=== PATIENT | female | born 1940 | race Caucasian/White ===

== ENCOUNTER 2017-01-19 09:12 | Day surgery (SDC) | payer MEDICARE ==
[~2017-01-19] VITALS: Ht 156.2 cm; Wt 68.0 kg
[~2017-01-19 09:12] MED LIST: 0.9% Sodium Chloride 1,000 ML IV SCH; CLOB15CR3 TOP; DULO30CA50 PO; FLUT16SP NS; GABA-502 PO; HYDR200T5 PO; LACT1CAP65 PO; LORA1TAB PO; OMEP40CA36 PO; ONDA8TAB10 PO; POLY17PO6 PO; Sodium Chloride LOK Flush 10 mL Syringe IV PRN; TRET20CR2 TP; VALS320T12 PO; fentaNYL-PF 50 mCg/mL 2 mL Inj IVPUSH PRN
[2017-01-19 09:46] VITALS: BP 153/90; PULSE 97; RESP 16; O2SAT 97
[2017-01-19] MEDS ORDERED: PSYL1PAC10 PO (09:46)
[2017-01-19 10:43] VITALS: BP 137/77; PULSE 80; RESP 12; O2SAT 99
[2017-01-19 10:52] VITALS: BP 139/74; PULSE 79; RESP 15; O2SAT 99
[2017-01-19 11:02] VITALS: BP 137/76; PULSE 80; RESP 15; O2SAT 98
--- NOTE | 2017-01-19 14:29 | ENDO ---
[address] [address] ENDOSCOPY PROCEDURE PATIENT: RAFAEL THOMSON : 1940 MR#: [id number] ADMIT: 01/19/2017 JOB ID: [id number] TITLE OF OPERATION: Esophagogastroduodenoscopy (EGD) with biopsy and colonoscopy with biopsy. PREOPERATIVE DIAGNOSIS(ES): Gastroesophageal reflux disease (GERD) and diarrhea. POSTOPERATIVE DIAGNOSIS(ES): 1. Antral ulcer distal esophagus that was seen, clean based and nonbleeding. 2. Mild nonerosive gastritis. 3. A 3 mm colon polyp seen in the ascending colon status post biopsy. 4. Small internal hemorrhoids. ANESTHESIA: Fentanyl 125 mcg and Versed 7 mg IV administered. COMPLICATIONS: None. BLOOD LOSS: Minimal. DESCRIPTION OF PROCEDURE: After the risks and benefits were explained to the patient, informed consent was obtained. After anesthesia was administered, the upper endoscope was inserted into mouth, intubating through the esophagus, stomach, and second portion of the duodenum and the mucosa carefully examined. After the procedure was done, the scope was withdrawn and the procedure terminated. A colonoscope was inserted per rectum to the terminal ileum and the mucosa carefully examined. Prep of the patient was excellent. After the procedure was done, the scope was withdrawn and the procedure terminated. FINDINGS: Upon inspection of the esophagus, the esophagus was normal, without masses, ulcers, or lesions. Z-line located 40 cm from incisors. Upon entering stomach there was a distal antral ulcer that was seen, clean based and nonbleeding. There was also mild nonerosive gastritis. Duodenal bulb, first and second portion were normal. Biopsies were taken in the duodenum, antral ulcer, body and distal esophagus. Upon inspection of the anus no masses, hemorrhoids, ulcers, or fissures that were seen throughout the entire examination. There were small internal hemorrhoids on retroflexion. There was also a 2-3 mm ascending colon polyp, removed by cold biopsy forceps. Random biopsies taken throughout the entire colon. IMPRESSION: 1. A 2 mm ascending colon polyp, removed by cold biopsy forceps. 2. Moderate internal hemorrhoids. 3. Clean based, nonbleeding ulcer in the antrum. 4. Mild nonerosive gastritis. RECOMMENDATIONS: 1. Await pathology results. 2. Carafate 1 g by mouth four times a day. 3. Omeprazole 40 mg by mouth twice a day. 4. Follow up in GI Clinic as needed.
--- NOTE | 2017-01-22 13:23 | PATH ---
SURGICAL PATHOLOGY Attending Physician:Rafal Burt MD CASE STATUS: Signed Out PATIENT NAME: RAFAEL THOMSON PID: [id number] : 1940 DATE COLLECTED:01/19/2017 17:04 SPECIMEN: 1: Esophagus, Biopsy 2: Stomach, Antrum, Biopsy 3: Gastric, Biopsy 4: Duodenum, Biopsy 5: Colon, Biopsy 6: Colon, Polyp CLINICAL HISTORY: 1). DISTAL ESOPHAGUS 2). ANTRAL ULCER 3). GASTRIC BODY 4). DUODENUM 5). RANDOM COLON 6). ASCENDING COLON POLYP FINAL DIAGNOSIS: 1.DISTAL ESOPHAGUS BIOPSY: SQUAMOCOLUMNAR MUCOSA WITH NO DIAGNOSTIC ALTERATIONS. Negative for intestinal/Frias' s metaplasia. Negative for dysplasia and malignancy. 2.ANTRAL ULCER, BIOPSY: EROSIVE GASTRITIS. Negative for intestinal metaplasia. Negative for dysplasia and malignancy. Immunohistochemical stains for Helicobacter pylori are pending and will be reported in an addendum. 3.GASTRIC BODY BIOPSY: BODY-TYPE MUCOSA WITH NO DIAGNOSTIC ALTERATIONS. Negative for Helicobacter organisms on H&E stains. Negative for intestinal metaplasia. Negative for dysplasia and malignancy. 4.DUODENUM BIOPSY: DUODENAL MUCOSA WITH NO DIAGNOSTIC ALTERATIONS. Negative for inflammation, sprue, dysplasia, and malignancy.5.RANDOM COLON BIOPSIES: COLONIC MUCOSA WITH NO DIAGNOSTIC ALTERATIONS. Negative for inflammation, dysplasia and malignancy. 6.ASCENDING COLON POLYP: TUBULAR ADENOMA. 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 1). The specimen is labeled "distal esophagus" and consists of a 0.2 x 0.2 x 0.2 CM portion of tissue which is entirely submitted in cassette 1A. 2). The specimen is labeled "antral ulcer" and consists of a 0.2 x 0.2 x 0.2 CM portion of tissue which is entirely submitted in cassette 2A. 3). The specimen is labeled "gastric body" and consists of 2 portions of tissue which aggregate to 0.3 x 0.2 x 0.2 CM. The specimen is entirely submitted in cassette 3A. 4). The specimen is labeled "duodenum" and consists of 2 portions of tissue which aggregate to 0.5 x 0.2 x 0.2 CM. The specimen is entirely submitted in cassette 4A. 5). The specimen is labeled "random colon" and consists of 3 portions of tissue which aggregate to 0.3 x 0.3 x 0.3 CM. The specimen is entirely submitted in cassette 5A. 6). The specimen is labeled "ascending colon polyp" and consists of 2 portions of tissue which aggregate to 0.2 x 0.2 x 0.2 CM. The specimen is entirely submitted in cassette 6A. 01/19/2017DC MICRO DESCRIPTION: See diagnosis. ICD-9 CODES: CPT CODES: 1: 41612 2: 03418, 16877 3: 79636 4: 43654 5: 18313 6: 49040 Electronically Signed Out Cheri Mascorro MD [facility], [place] [address] Technical component performed at [facility], [facility] [address], [place], [address]
== END 2017-01-19 23:59 | disposition home or self-care (01) ==
LOC: END 09:12
PROVIDERS: ATTEND Internal Medicine Gastroenterology
DX: D12.2 Benign neoplasm of ascending colon (principal); K64.8 Other hemorrhoids; R19.7 Diarrhea, unspecified; K25.9 Gastric ulcer, unspecified as acute or chronic, without hemorrhage or perforation; K29.60 Other gastritis without bleeding; K21.9 Gastro-esophageal reflux disease without esophagitis; I10 Essential (primary) hypertension; M79.7 Fibromyalgia; L40.50 Arthropathic psoriasis, unspecified; M19.90 Unspecified osteoarthritis, unspecified site; K56.69 Other intestinal obstruction; Z90.710 Acquired absence of both cervix and uterus
CPT/HCPCS: 43239; 45380; 99153; G0500; J2250; J3010; J7030